=== PATIENT | female | born 1965 | race Caucasian/White ===

== ENCOUNTER 2018-03-17 00:39 | Inpatient (IN) | payer BC, OTHER ==
[2018-03-17] VITALS (7 sets, daily range): BP systolic 99–138; BP diastolic 53–90
[~2018-03-17] VITALS: Ht 165.1 cm; Wt 79.4 kg
[2018-03-17] MEDS ORDERED: ZOLOFT50 MG PO (00:50)
[2018-03-17] MEDS ORDERED: SEROQUEL200 MG PO (00:51)
[2018-03-17] MEDS ORDERED: SYNTHROID100 MC1 PO (00:52)
[2018-03-17] MEDS ORDERED: OXYCODONE HCL 55 MG PO (05:54)
[2018-03-17 06:50] LABS: ABSOLUTE MONOCYTES 0.3 thou/uL (0.0-1.2); BASOPHILS 0.5 %; EOSINOPHILS 0.2 %; HEMATOCRIT 40.3 % (37.0-47.0); HEMOGLOBIN 13.5 gm/dL (12.0-15.0); MCH 31.1 pg (26.0-34.0); MCHC 33.5 g/dL (28.0-37.0); MCV 92.6 fL (80.0-100.0); MONOCYTES 3.8 %; MPV 9.7 fl. (7.2-11.1); NUCLEATED RBCS 0 /100WBC; PLATELET COUNT* 230 thou/uL (150-400); POLYS 83.5 %; RBC 4.35 mil/uL (4.20-5.00); RDW-CV 13.5 % (10.5-14.5); WBC 8.4 thou/uL (4.0-11.0)
[2018-03-17 06:56] LABS: PROTIME 10.2 Seconds (9.20-11.50)
[2018-03-17 07:06] LABS: CREATININE 0.7 mg/dL (0.6-1.3)
[2018-03-17 07:10] LABS: ALBUMIN 4.1 g/dL (3.4-5.0); TOTAL BILIRUBIN 0.2 mg/dL (<0.1-1.0); TOTAL PROTEIN 7.6 g/dL (6.4-8.2)
[2018-03-18 04:03] VITALS: BP 92/65
[2018-03-18 08:00] VITALS: BP 122/71
[2018-03-18 10:00] VITALS: BP 122/71
[2018-03-18 10:04] VITALS: BP 122/71
[2018-03-18 10:05] VITALS: BP 122/71
[2018-03-18 10:06] VITALS: BP 122/71
[2018-03-18] MEDS ORDERED: TRAMADOL 50 MG50 MG PO (10:13)
--- NOTE | 2018-04-02 11:56 | OP ---
[address] [address] OPERATIVE REPORT Name: MICHELLE GARCIA Room: [address] M.R.#: [id number] Admission: 03/17/18 Attend Phys: Joseph River DO Discharge: 03/18/18 Date of : 65 Report #: [id number] THIS REPORT FOR: //name// CC: Richie River DATE OF SERVICE: 03/17/2018 FAMILY PHYSICIAN: Richie Quintanilla MD PREOPERATIVE DIAGNOSES: 1. Closed comminuted fracture, left distal radius, greater than 3 pieces. 2. Dislocated left elbow. POSTOPERATIVE DIAGNOSES: 1. Closed comminuted fracture, left distal radius, greater than 3 pieces. 2. Dislocated left elbow. OPERATION PERFORMED: Closed reduction, left distal radius, greater than 3 pieces with application of external fixator, left elbow, resplinting left elbow, evaluation under C-arm. Physician directed fluoroscopy under [address] Mcintyre. SURGEON: Carlos Mcintyre DO TOBACCO SORTER: Joseph Wakefield. ANESTHESIA: General. GROSS PATHOLOGY: This patient has suffered a fall on 03/16/2018. She was evaluated in the ER where closed reduction of left distal radius was performed as well as the left dislocated elbow. Satisfactory reduction of the elbow was noted. There did persist comminution displacement of the wrist with need for further surgical intervention on 03/17/2018 of external fixator versus ORIF. Because of the comminution and the distal fracture pattern an external fixator was performed utilizing the Hodgen external fixator. The left elbow was evaluated after the above procedure, noted to be elbow reduced well. This elbow continued to have closed treatment. DESCRIPTION OF PROCEDURE: The patient was brought to the operating room where general anesthetic was administered. Preoperative antibiotics were given. A Hibiclens scrub and a ChloraPrep, prep was done to the left arm. The patient was draped in a sterile manner. Two incisions were made on the 2nd metacarpal on the radial aspect. Utilizing the guide, Schanz pins x 2 were drilled into the second metacarpal. This was also done to the distal radius, [place] [address] OPERATIVE REPORT Name: GARCIAMICHELLE L Room: [address]#: [id number] Admission: 03/17/18 Attend Phys: Joseph River DO Discharge: 03/18/18 Date of : 65 Report #: [id number] now to the fracture site. Again, the C-arm was visualized. Upon completion of the Schanz pins being placed into position, they were viewed in the C-arm and noted to be in acceptable position. The skin around the pins was closed with interrupted 4-0 nylon suture. A closed reduction was performed keeping the fracture in the distal radius in good position. The external fixator device was placed into position and assembled. It was further viewed with the C-arm, which revealed the fracture being maintained in acceptable position of the left elbow. Sterile dressing was applied. Attention was then turned to the left elbow where it was viewed with the C-arm and noted to be in a good reduced position. A full arm splint was applied. The patient was transferred to recovery room in good condition. Blood loss approximately 5 mL for the procedure. The needle and sponge counts reported as correct. <ELECTRONICALLY SIGNED> By: Gordon Eagel DO 04/02/18 [id number] Mcintyre DO /efraín
== END 2018-03-18 10:25 | disposition home or self-care (01) | DRG 512 ==
LOC: M.ERS 00:39 → M.TBA-ER 06:31 → M.ORTHSURG 06:31
PROVIDERS: Emergency Medicine; ADMIT Orthopaedic Surgery
PROC: 0PS Upper Bones, Reposition (ICD-10-PCS; principal; 2018-03-17)
PROC: 0PSJXZZ Reposition Left Radius, External Approach (ICD-10-PCS; principal; 2018-03-17)
DX: S52.572A Other intraarticular fracture of lower end of left radius, initial encounter for closed fracture (principal); S53.125A Posterior dislocation of left ulnohumeral joint, initial encounter; W18.30XA Fall on same level, unspecified, initial encounter; Z90.710 Acquired absence of both cervix and uterus; Z98.891 History of uterine scar from previous surgery; Y93.89 Activity, other specified; Y92.89 Other specified places as the place of occurrence of the external cause; Y99.8 Other external cause status; Z88.5 Allergy status to narcotic agent